=== PATIENT | male | born 1990 | race Caucasian/White ===

== ENCOUNTER 2017-06-15 09:00 | Emergency (ER) | payer MEDICAID, SELFPAY ==
[2017-06-15 09:01] VITALS: BP 155/73; PULSE 125; RESP 16; TEMP 37.1; O2SAT 97; BMI 30.4
--- NOTE | 2017-06-15 09:18 | ED.VISSUMM ---
- ER Visit Summary Date of Service: 06/15/17 Chief Complaint: Nausea and vomiting History of Present Illness: The patient is a 27 M who states that 2 evenings ago he ate some pizza. He states that shortly thereafter he developed abdominal cramping vomiting. Several hours later he had diarrhea. That persisted throughout yesterday and the night. He last had diarrhea at 0300 hrs. He states he vomited just prior to arrival in the department. Patient denies any fevers. He denies any blood in the stool. States he otherwise is very healthy. He is currently living at a clean house in [place]. He states he does not do any drugs. (The patient smells extremely heavy of marijuana almost as if he was exposed to it just prior to walking into the emergency department) Physical Examination: Afebrile slightly tachycardic. Gen: Well-nourished well-developed the patient is intermittently retching. Head: Normocephalic atraumatic Eyes: Pupils are 5 mm bilaterally and sluggish. ENT: TMs clear no rhinorrhea moist mucous membranes patient appears very well-hydrated. Neck: Supple no lymphadenopathy no JVD nontender CVS: Tachycardic rate rhythm no murmurs normal S1-S2 excellent capillary refill. Respiratory: No distress clear to auscultation bilaterally chest nontender Abdomen: Soft nontender nondistended normal bowel sounds no masses Back: Nontender Extremity: Nontender no edema Skin: Normal color no rash Neuro: alert orientated ?3 CN II-XII intact normal strength sensation reflexes gait cerebellar Psych: Normal affect normal mood Emergency Department Course and Treatment: Patient was given 8 mg Zofran ODT here. I will write him prescription for Zofran. He is to use Imodium. He is to orally hydrate. Patient is drinking water here in the department and brought his own Sprite which is 3/4 gone upon arrival. Follow-up with primary care if not improving return if worsening. Impression: 1. Gastroenteritis This note was generated with [employer] dictation software. 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 Orally hydrate with water and Pedialyte.
[2017-06-15] MEDS: Ondansetron ODT 4 MG Tablet 8 MG PO (09:21)
--- NOTE | 2017-06-15 09:28 | ED.DCSUM_ITS ---
- ER Visit Summary Date of Service: 06/15/17 Chief Complaint: Nausea and vomiting History of Present Illness: The patient is a 27 M who states that 2 evenings ago he ate some pizza. He states that shortly thereafter he developed abdominal cramping vomiting. Several hours later he had diarrhea. That persisted throughout yesterday and the night. He last had diarrhea at 0300 hrs. He states he vomited just prior to arrival in the department. Patient denies any fevers. He denies any blood in the stool. States he otherwise is very healthy. He is currently living at a clean house in [place]. He states he does not do any drugs. (The patient smells extremely heavy of marijuana almost as if he was exposed to it just prior to walking into the emergency department) Physical Examination: Afebrile slightly tachycardic. Gen: Well-nourished well-developed the patient is intermittently retching. Head: Normocephalic atraumatic Eyes: Pupils are 5 mm bilaterally and sluggish. ENT: TMs clear no rhinorrhea moist mucous membranes patient appears very well- hydrated. Neck: Supple no lymphadenopathy no JVD nontender CVS: Tachycardic rate rhythm no murmurs normal S1-S2 excellent capillary refill. Respiratory: No distress clear to auscultation bilaterally chest nontender Abdomen: Soft nontender nondistended normal bowel sounds no masses Back: Nontender Extremity: Nontender no edema Skin: Normal color no rash Neuro: alert orientated ?3 CN II-XII intact normal strength sensation reflexes gait cerebellar Psych: Normal affect normal mood Emergency Department Course and Treatment: Patient was given 8 mg Zofran ODT here. I will write him prescription for Zofran. He is to use Imodium. He is to orally hydrate. Patient is drinking water here in the department and brought his own Sprite which is 3/4 gone upon arrival. Follow-up with primary care if not improving return if worsening. Impression: 1. Gastroenteritis This note was generated with [employer] dictation software. It may contain incorrect words, spelling, and punctuation that were not noted in review of the chart prior to signing ED Disposition - Plan for ED Patient: Disposition: Home or Assisted Living Chief Complaint: Nausea/Vomiting Instructions: ED Vomiting Diarrhea Nonspecific Ad Prescriptions: Ondansetron [Zofran Odt] 4 - 8 mg PO Q8H PRN PRN #20 tab PRN Reason: Nausea Referrals: Osman Cortes III, MD [Primary Care Provider] - 3-5 Days if not improving Additional Instructions: While you are at the pharmacy I would recommend you knot picker cloth some Imodium for the diarrhea. Orally hydrate with water and Pedialyte.
== END 2017-06-15 09:31 | disposition home or self-care (01) ==
PROVIDERS: Emergency Provider Emergency Medicine; Family Provider Family Medicine; PCP Family Medicine
DX: K52.9 Noninfective gastroenteritis and colitis, unspecified (principal); Z72.0 Tobacco use
CPT/HCPCS: 99283

== ENCOUNTER 2017-07-07 15:46 | Emergency (ER) | payer MEDICAID, SELFPAY ==
[2017-07-07 15:47] VITALS: BP 132/75; PULSE 94; RESP 16; TEMP 36.4; O2SAT 99; BMI 29.3
[2017-07-07] MEDS: HYDROcodone Bitartrate/Apap 5/325 Tablet PO (16:16)
--- NOTE | 2017-07-07 16:31 | ED.DCSUM_ITS ---
- ER Visit Summary Date of Service: 07/07/17 Chief Complaint: Left arm lump History of Present Illness: The patient is a 27 M who presents with a painful swollen red lump in his left armpit. He initially noted it about 5 days ago. He was started on Keflex and has been doing warm compresses. It has continued to worsen since that time. He returned to the urgent care. He states he was told that it was too close to the lymph nodes for them to take care of it there so he was sent here to the emergency department. He has no systemic symptoms such as fevers vomiting or diarrhea. Physical Examination: Afebrile vitals are normal Moist mucous membranes Heart regular rate and rhythm Lungs are clear There is a left axillary abscess which is tender to the touch and fluctuant measuring about 2 x 2 cm no spontaneous drainage at this time Test Results: Not indicated Emergency Department Course and Treatment: Patient was anesthetized with 3 cc of 1% local lidocaine. Good anesthesia was achieved. A cruciate incision was made with a #11 blade with a large amount of purulent drainage. Quarter inch packing was placed. Patient was advised to move this himself in 2-3 days or to return to the emergency department to have the packing removed. He was advised on warm soaks. We will add on Bactrim for MRSA coverage. He understands to return for new or worsening symptoms. He was given a [place] here for pain and advised to use anti-inflammatories at home. All questions answered bedside and patient discharged. Treatment Plan: [] Disposition: Discharge Impression: Left axillary abscess This note was generated with [employer] dictation software. It may contain incorrect words, spelling, and punctuation that were not noted in review of the chart prior to signing ED Disposition - Plan for ED Patient: Chief Complaint: Abscess Referrals: Osman Cortes III, MD [Primary Care Provider] -
--- NOTE | 2017-07-07 16:31 | ED.DEP ---
ED Disposition - Plan for ED Patient: Chief Complaint: Abscess Instructions: ED Abscess IandD Prescriptions: Smz/Tmp Ds [Bactrim Ds] 1 tab PO BID #14 tab Referrals: Osman Cortes III, MD [Primary Care Provider] -
== END 2017-07-07 16:52 | disposition home or self-care (01) ==
LOC: ED 16:13
PROVIDERS: Emergency Provider Emergency Medicine; Family Provider Family Medicine; PCP Family Medicine
DX: L02.412 Cutaneous abscess of left axilla (principal); Z72.0 Tobacco use
CPT/HCPCS: 10060; 99284

== ENCOUNTER 2017-07-09 14:10 | Emergency (ER) | payer MEDICAID, SELFPAY ==
[2017-07-09 14:10] VITALS: BP 132/78; PULSE 72; RESP 16; TEMP 36.8; O2SAT 99; BMI 29.1
--- NOTE | 2017-07-09 14:54 | ED.VISSUMM ---
- ER Visit Summary Date of Service: 07/09/17 Chief Complaint: Wound check History of Present Illness: The patient is a 27 M presents for a wound check. The patient had incision and drainage of a left axillary abscess 2 days ago. He states he was told to come back today for packing removal. He denies any fevers or chills. The drainage has improved. He said no other systemic symptoms. He has been taking Bactrim with some improvement. Physical Examination: Exam is relatively unremarkable. The patient has cruciate incision in the left axilla. There is no erythema. The wound is open, but there is no drainage. There is no cellulitis. The packing has already been dislodged. There was minimal tenderness to palpation. Test Results: [] Emergency Department Course and Treatment: The abscess looks like it is well healing. The cruciate incision is still open. There is no drainage or cellulitis. The patient will continue his antibiotic. He will be discharged home. Treatment Plan: [] Disposition: Charge Impression:. Wound check This note was generated with [employer] dictation software. It may contain incorrect words, spelling, and punctuation that were not noted in review of the chart prior to signing ED Disposition - Plan for ED Patient: Chief Complaint: Wound Check Instructions: ED Wound Check Post Op No Infec Referrals: Osman Cortes III, MD [Primary Care Provider] -
[2017-07-09 15:07] VITALS: PULSE 81; RESP 14; O2SAT 99
== END 2017-07-09 15:05 | disposition home or self-care (01) ==
LOC: ED 14:57
PROVIDERS: Emergency Provider Emergency Medicine; Family Provider Family Medicine; PCP Family Medicine
DX: Z48.01 Encounter for change or removal of surgical wound dressing (principal); Z72.0 Tobacco use
CPT/HCPCS: 99282

== ENCOUNTER 2017-08-08 18:38 | Emergency (ER) | payer MEDICAID, SELFPAY ==
[2017-08-08 18:38] VITALS: BP 135/72; PULSE 98; RESP 18; TEMP 36.7; O2SAT 98; BMI 28.5
--- NOTE | 2017-08-08 19:26 | ED.VISSUMM ---
- ER Visit Summary Date of Service: 08/08/17 Chief Complaint: Left nose pain, left ear pain and facial swelling History of Present Illness: The patient is a 27 M who presents because of pain and swelling lateral aspect of the left naris. He also is concerned because of left facial swelling and left ear pain. He denies any dental pain. He denies nasal drainage, rhinorrhea, postnasal drainage or congestion. He denies sore throat. He denies fever chills. Denies headache, photophobia, ocular pain or neck pain or stiffness. He had a subcutaneous abscess left upper extremity 3 months ago and was treated with cephalexin and Bactrim after I&D. He has no history rheumatic fever, murmur, SPE, IV drug use to be immune to rest. Physical Examination: Patient has a subcutaneous abscess lateral aspect left naris. There is facial swelling with mild erythema left side. There is evidence of serous otitis on the left. There is minimal congestion/drainage in the nares. Mucosa appears normal. Posterior pharynx unremarkable with midline uvula. There is no erythema, or exudate. Trachea is midline. No cervical lymphadenopathy. Neck is supple with no meningeal findings. Insert cardiopulmonary exam Test Results: None Emergency Department Course and Treatment: The nose was anesthetized by infraorbital nerve block. Intraoral approach was undertaken. There was supplementation required. Once the area was anesthetized incision was made with murky thick brown purulent material noted. Blunt dissection was undertaken. The area was packed. Because of recent abscess he and concern for facial cellulitis he was placed on cephalexin and Bactrim. Treatment Plan: Follow-up with Dr. Taqueria Cortes in 2 days for wound check and antibiotics for strep and staph coverage Disposition: Discharged home in stable and improved condition Impression: 1. Subcutaneous abscess naris left side status post I&D 2. Serous otitis left ear This note was generated with [employer] dictation software. It may contain incorrect words, spelling, and punctuation that were not noted in review of the chart prior to signing ED Disposition - Plan for ED Patient: Disposition: Home or Assisted Living Chief Complaint: Cold Sx Instructions: ED Abscess IandD, ED Cellulitis Facial, ED Otitis Media Serous Adult Prescriptions: Hydrocodone Bitart/Apap 5-325 [[place] 5MG-325MG] 1 tablet PO Q4H PRN PRN 2 Days #10 tablet PRN Reason: Pain Smz/Tmp Ds [Bactrim Ds] 1 tab PO BID #14 tab Cephalexin 500 mg PO 4X/DAY #28 cap Referrals: Osman Cortes III, MD [Primary Care Provider] - 2 Days for wound check Additional Instructions: Your prescription was electronically transmitted to [facility] pharmacy your designated pharmacy.
--- NOTE | 2017-08-08 19:33 | ED.DCSUM_ITS ---
- ER Visit Summary Date of Service: 08/08/17 Chief Complaint: Left nose pain, left ear pain and facial swelling History of Present Illness: The patient is a 27 M who presents because of pain and swelling lateral aspect of the left naris. He also is concerned because of left facial swelling and left ear pain. He denies any dental pain. He denies nasal drainage, rhinorrhea, postnasal drainage or congestion. He denies sore throat. He denies fever chills. Denies headache, photophobia, ocular pain or neck pain or stiffness. He had a subcutaneous abscess left upper extremity 3 months ago and was treated with cephalexin and Bactrim after I&D. He has no history rheumatic fever, murmur, SPE, IV drug use to be immune to rest. Physical Examination: Patient has a subcutaneous abscess lateral aspect left naris. There is facial swelling with mild erythema left side. There is evidence of serous otitis on the left. There is minimal congestion/drainage in the nares. Mucosa appears normal. Posterior pharynx unremarkable with midline uvula. There is no erythema, or exudate. Trachea is midline. No cervical lymphadenopathy. Neck is supple with no meningeal findings. Insert cardiopulmonary exam Test Results: None Emergency Department Course and Treatment: The nose was anesthetized by infraorbital nerve block. Intraoral approach was undertaken. There was supplementation required. Once the area was anesthetized incision was made with murky thick brown purulent material noted. Blunt dissection was undertaken. The area was packed. Because of recent abscess he and concern for facial cellulitis he was placed on cephalexin and Bactrim. Treatment Plan: Follow-up with Dr. Taqueria Cortes in 2 days for wound check and antibiotics for strep and staph coverage Disposition: Discharged home in stable and improved condition Impression: 1. Subcutaneous abscess naris left side status post I&D 2. Serous otitis left ear This note was generated with [employer] dictation software. It may contain incorrect words, spelling, and punctuation that were not noted in review of the chart prior to signing ED Disposition - Plan for ED Patient: Disposition: Home or Assisted Living Chief Complaint: Cold Sx Instructions: ED Abscess IandD, ED Cellulitis Facial, ED Otitis Media Serous Adult Prescriptions: Hydrocodone Bitart/Apap 5-325 [[place] 5MG-325MG] 1 tablet PO Q4H PRN PRN 2 Days # 10 tablet PRN Reason: Pain Smz/Tmp Ds [Bactrim Ds] 1 tab PO BID #14 tab Cephalexin 500 mg PO 4X/DAY #28 cap Referrals: Osman Cortes III, MD [Primary Care Provider] - 2 Days for wound check Additional Instructions: Your prescription was electronically transmitted to [facility] pharmacy your designated pharmacy.
[2017-08-08] MEDS: HYDROcodone Bitartrate/Apap 5/325 Tablet PO (19:42)
[2017-08-08] MEDS: Smz/Tmp Ds Tablet 1 TABLET PO (19:42)
[2017-08-08] MEDS: Cephalexin 500 MG Capsule PO (19:55)
== END 2017-08-08 20:00 | disposition home or self-care (01) ==
PROVIDERS: Emergency Provider Emergency Medicine; Family Provider Family Medicine; PCP Family Medicine
DX: J34.0 Abscess, furuncle and carbuncle of nose (principal); H65.92 Unspecified nonsuppurative otitis media, left ear; Z72.0 Tobacco use
CPT/HCPCS: 10061; 99284

== ENCOUNTER 2017-10-28 16:09 | Emergency (ER) | payer MEDICAID, SELFPAY ==
[2017-10-28 16:10] VITALS: BP 159/95; PULSE 119; RESP 16; TEMP 36.4; O2SAT 97; BMI 28.7
[2017-10-28 16:58] LABS: Absolute Neutrophil Count 4.7 X10^3/uL (2.0-7.7); Basophil# 0.03 X10^3/uL; Basophil% 0.4 % (0-1); Eosinophil# 0.08 X10^3/uL; Hematocrit 39.4 % (40-54); Hemoglobin 13.1 g/dl (13.0-16.5); Lymphocyte % 30.3 % (19-41); Mean Corp Hgb Conc 33.2 g/gl (32-36); Mean Corpuscular Hgb 29.9 pg (27.0-32.0); Mean Platelet Vol. 10.1 fl (6.2-12.0); Monocyte# 0.77 X10^3/uL; Monocyte% 9.7 % (0-10); Neutrophil # 4.65 X10^3/uL (2.7-7.7); Neutrophil % 58.6 % (47-70); Platelet Count 159 K/mm3 (150-450); RBC Distribution Width CV 13.4 % (11.6-14.6); Red Blood Count 4.38 M/mm3 (4.6-6.2); White Blood Count 7.9 K/mm3 (4.4-11.0)
[2017-10-28 17:03] LABS: POSITIVE COUNT NO; POSITIVE DIFFERENTIAL NO; POSITIVE MORPHOLOGY NO
[2017-10-28 17:10] VITALS: RESP 14
[2017-10-28 17:19] LABS: Anion Gap 8 (5-15); BUN 8 mg/dL (7-18); BUN/Creat Ratio 11.4 RATIO (10-20); Calcium,Total 8.4 mg/dL (8.5-10.1); Chloride 107 mmol/L (98-107); EST Glomerular Filtration Rate 142 mL/min (>60); Est Glom Filt Rate - Afr Amer 172 mL/min (>60); Estimated Creatinine Clearance 141.78 ml/min; Glucose 100 mg/dL (74-106); Potassium 3.5 mmol/L (3.5-5.1); Sodium Level 142 mmol/L (136-145)
[2017-10-28 17:53] LABS: Amphetamine Urine VISTA NEGATIVE (<1000 ng/mL); Barbiturate Urine VISTA NEGATIVE (< 200 ng/mL); Benzodiazepine Urine VISTA NEGATIVE (< 200 ng/mL); Cocaine Urine VISTA NEGATIVE (< 300 ng/mL); Ecstacy Urine VISTA NEGATIVE (< 500 ng/mL); Methadone Urine VISTA NEGATIVE (< 300 ng/mL); PCP Urine VISTA NEGATIVE (< 25 ng/mL); THC Urine VISTA POSITIVE (< 50 ng/mL); Vista UDS pH Range 6
--- NOTE | 2017-10-28 17:55 | ED.RN ---
CALLED [facility] TO HAVE THEM COME SEE PATIENT. DISTRICT GAUGER STATED THEY WILL LET LUIS ENRIQUE ROSE MARY KNOW.
[2017-10-28 18:00] VITALS: RESP 14
--- NOTE | 2017-10-28 18:09 | ED.DCSUM_ITS ---
- ER Visit Summary Date of Service: 10/28/17 Chief Complaint: [Depression and suicidal ideation] History of Present Illness: The patient is a 27 M [presents to the emergency department complaint of feeling depressed and suicidal. Patient states he has felt this twice especially over the last 2 days. Patient states that he is losing his house, his job, and his girlfriend. 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 Patient's plan is to overdose on heroin. He denies any visual or auditory hallucinations. Patient does have a history of depression and is currently on trazodone, Prozac, and Vistaril. Patient has had admissions for suicidal ideation to psychiatric facilities in the past. He denies any physical complaints.] Physical Examination: [HEENT-PERRLA, EOMI. Cranial nerves II through XII grossly intact. TMs clear. Mucous membranes moist. No adenopathy. Cardiovascular-regular rate and rhythm without murmur or ectopy Lungs-clear to auscultation, chest wall stable without crepitus or subcu emphysema Abdomen-normoactive bowel sounds, soft, nontender, no rebound or rigidity, no peritoneal signs. Extremities-intact ?4, normal range of motion, normal pulses, atraumatic] Test Results: [CBC with differential was normal. Chemistries were normal. Toxicology screen was positive for opiates and marijuana. Alcohol was negative. ] Emergency Department Course and Treatment: [Patient will be evaluated by crisis. ] Treatment Plan: [Plan will be to likely have patient admitted to psychiatric facility as he continues to feel suicidal.] Disposition: [Pending evaluation by crisis Impression: [Depression Suicidal ideation] This note was generated with [employer]! dictation software. It may contain incorrect words, spelling, and punctuation that were not noted in review of the chart prior to signing ED Disposition - Plan for ED Patient: Chief Complaint: Suicidal Referrals: Care Physician,No Primary [Primary Care Provider] -
--- NOTE | 2017-10-28 18:47 | ED.RN ---
LUIS ENRIQUE FROM [facility] CALLED. HE STATED HE WILL BE OVER SOON.
--- NOTE | 2017-10-28 19:42 | ED.RN ---
LUIS ENRIQUE FROM [facility] IS HERE TO SEE PT.
--- NOTE | 2017-10-28 19:43 | EKG12_ITS ---
Test Reason : [facility] [place] Pressure : / mmHG Vent. Rate : 088 BPM Atrial Rate : 088 BPM P-R Int : 156 ms QRS Dur : 092 ms QT Int : 362 ms P-R-T Axes : 068 080 046 degrees QTc Int : 438 ms Normal sinus rhythm Normal ECG Confirmed by SYDNEE AGUILAR, LUCIO ([id number]), web editor REBEKA CHAPARRO ([id number]) on 10/31/2017 2:31:09 PM Referred By: BILL Confirmed By:LUCIO RANDHAWA MD
--- NOTE | 2017-10-28 20:03 | ED.VISSUMM ---
- ER Visit Summary Date of Service: 10/28/17 Chief Complaint: [Depression] History of Present Illness: The patient is a 27 M [presented with complaint of feeling suicidal and feeling depressed. Patient was evaluated by crisis and at this time stating that he is not suicidal. Patient states that he is going to stay at the [facility] and does not feel like he needs to be hospitalized. Crisis is very familiar with this patient as he has had multiple recent hospitalizations for similar complaints. Patient tells me that he has been without his medications for the last 2 days however he does have prescriptions for his medications at his mother's house. Patient is adamant that he has no plan on harming himself at this time and can contract for safety. Patient has an intake appointment with crisis tomorrow.] Physical Examination: [] Test Results: [] Emergency Department Course and Treatment: [] Treatment Plan: [] Disposition: [Discharged home in stable condition. Patient to follow-up with crisis. Crisis will work on making sure patient has access to his medications.] Impression: [Depression] This note was generated with [employer] dictation software. It may contain incorrect words, spelling, and punctuation that were not noted in review of the chart prior to signing ED Disposition - Plan for ED Patient: Chief Complaint: Suicidal Referrals: Care Physician,No Primary [Primary Care Provider] -
--- NOTE | 2017-10-28 20:05 | ED.DEP ---
ED Disposition - Plan for ED Patient: Chief Complaint: Suicidal Instructions: ED Contract, No Harm, ED Depression Referrals: Care Physician,No Primary [Primary Care Provider] - Additional Instructions: follow up with crisis
[2017-10-28] MEDS: hydrOXYzine PAM 25 MG Capsule 50 MG PO (20:20)
[2017-10-28] MEDS: FLUoxetine 20 MG Capsule 40 MG PO (20:20)
[2017-10-28 20:28] LABS: AST(SGOT) 21 U/L (15-37); Alanine Aminotransfer ALT/SGPT 49 U/L (16-61); Albumin, Serum 3.6 g/dL (3.2-5.0); Alkaline Phosphatase 50 U/L (45-117); Bilirubin, Direct 0.06 mg/dL (0.00-0.30); Globulin 3.7 g/dL (2.2-4.2); Protein, Total 7.3 g/dL (6.4-8.2)
[2017-10-28 20:37] VITALS: BP 128/74; PULSE 86; RESP 18; O2SAT 97
--- NOTE | 2017-10-28 20:39 | ED.RN ---
THIS NURSE REVIEWED D/C INSTRUCTIONS WITH PT. PT VERBALIZED UNDERSTANDING OF INSTRUCTIONS. PT DENIES FURTHER NEEDS OR QUESTIONS AT THIS TIME. PT AMBULATES FROM ROOM ON OWN WITHOUT ASSISTANCE FROM STAFF
== END 2017-10-28 20:39 | disposition home or self-care (01) ==
PROVIDERS: Emergency Provider Emergency Medicine
DX: F32.9 Major depressive disorder, single episode, unspecified (principal); R45.851 Suicidal ideations; F11.90 Opioid use, unspecified, uncomplicated; Z72.0 Tobacco use
CPT/HCPCS: 80048; 80076; 80307; 80320; 85025; 93005; 99284; G0480

== ENCOUNTER 2017-10-30 01:49 | Emergency (ER) | payer MEDICAID, SELFPAY ==
[2017-10-30] VITALS (10 sets, daily range): BP systolic 113–137; BP diastolic 63–83; PULSE 68–95; RESP 14–20; TEMP 37; O2SAT 95–100; BMI 28.9
--- NOTE | 2017-10-30 01:59 | ED.RN ---
NURSING STAFF AT THIS TIME TIME STARTING ONE ON ONE OBSERVATION OF PATIENT DUE TO SUICIDAL THOUGHTS
--- NOTE | 2017-10-30 02:04 | ED.DCSUM_ITS ---
- ER Visit Summary Date of Service: 10/30/17 Chief Complaint: Suicidal ideation History of Present Illness: The patient is a 27 M he was seen in the ER on the for suicidal ideation. He states he restarted his medication but is not feeling any better. He states his plan is to hang himself anyone as far as to get a rope. He states his last psych admission was approximately June of this year. Physical Examination: Vital signs unremarkable. Patient sitting upright in bed no acute distress. Head neck examination is unremarkable. Heart is regular rate and rhythm. Lung sounds are clear. Abdomen is soft nontender. Skin examination reveals a few superficial abrasions on his legs. Psychiatric evaluation reveals poor eye contact and depressed affect. He has limited answers to questions. Test Results: CBC and chemistry studies are unremarkable. EtOH is negative. Tox screen is positive for cannabinoids. LFTs are normal. EKG is unremarkable. Emergency Department Course and Treatment: Crisis has been called to evaluate the patient. They advised me the patient was just discharged from a mental health facility a few days ago. At this time they are looking at [facility]. Treatment Plan: [] Disposition: Anticipated transfer Impression: Suicidal ideation This note was generated with [employer] dictation software. It may contain incorrect words, spelling, and punctuation that were not noted in review of the chart prior to signing ED Disposition - Plan for ED Patient: Chief Complaint: Suicidal Referrals: Care Physician,No Primary [Primary Care Provider] -
[2017-10-30 02:27] LABS: Absolute Lymphocyte Count 3.53 X10^3/ul (0.83-4.51); Absolute Neutrophil Count 4.3 X10^3/uL (2.0-7.7); Anion Gap 7 (5-15); BUN 14 mg/dL (7-18); BUN/Creat Ratio 15.6 RATIO (10-20); Basophil# 0.04 X10^3/uL; Basophil% 0.5 % (0-1); Calcium,Total 8.6 mg/dL (8.5-10.1); Chloride 106 mmol/L (98-107); EST Glomerular Filtration Rate 107 mL/min (>60); Eosinophil# 0.11 X10^3/uL; Eosinophils% 1.3 % (0-5); Est Glom Filt Rate - Afr Amer 129 mL/min (>60); Estimated Creatinine Clearance 110.27 ml/min; Glucose 98 mg/dL (74-106); Hematocrit 40.7 % (40-54); Hemoglobin 13.9 g/dl (13.0-16.5); Lymphocyte # 3.53 X10^3/ul (4.0); Lymphocyte % 40.4 % (19-41); Mean Corp Hgb Conc 34.2 g/gl (32-36); Mean Corpuscular Hgb 30.8 pg (27.0-32.0); Mean Corpuscular Volume 90.2 fL (80-94); Mean Platelet Vol. 10.5 fl (6.2-12.0); Monocyte# 0.76 X10^3/uL; Monocyte% 8.7 % (0-10); Neutrophil # 4.28 X10^3/uL (2.7-7.7); Neutrophil % 48.9 % (47-70); Platelet Count 192 K/mm3 (150-450); Potassium 3.9 mmol/L (3.5-5.1); RBC Distribution Width CV 13.5 % (11.6-14.6); RBC Distribution Width SD 44.4 fl (35.1-43.9); Red Blood Count 4.51 M/mm3 (4.6-6.2); Sodium Level 139 mmol/L (136-145); White Blood Count 8.7 K/mm3 (4.4-11.0)
[2017-10-30 02:30] LABS: Differential Indicated SCAN CRITERIA MET; POSITIVE COUNT NO; POSITIVE DIFFERENTIAL NO; POSITIVE MORPHOLOGY YES
[2017-10-30 02:49] LABS: Anisocytosis RARE; Macrocytosis RARE; Platelet Estimate ADEQUATE (ADEQ)
--- NOTE | 2017-10-30 02:50 | ED.RN ---
CALLED [facility] TO SEE THIS PT, LUIS ENRIQUE BAZZI IS CLASSIFIER OPERATOR
[2017-10-30 03:01] LABS: Amphetamine Urine VISTA NEGATIVE (<1000 ng/mL); Barbiturate Urine VISTA NEGATIVE (< 200 ng/mL); Benzodiazepine Urine VISTA NEGATIVE (< 200 ng/mL); Cocaine Urine VISTA NEGATIVE (< 300 ng/mL); Ecstacy Urine VISTA NEGATIVE (< 500 ng/mL); Methadone Urine VISTA NEGATIVE (< 300 ng/mL); PCP Urine VISTA NEGATIVE (< 25 ng/mL); THC Urine VISTA POSITIVE (< 50 ng/mL); Vista UDS pH Range 6
--- NOTE | 2017-10-30 03:17 | ED.RN ---
[facility] CALLED IN, LUIS ENRIQUE IS AWARE THIS PT NEEDS TO BE SEEN
--- NOTE | 2017-10-30 04:07 | ED.RN ---
[facility] ON SITE
--- NOTE | 2017-10-30 04:09 | EKG12_ITS ---
Test Reason : Blood Pressure : / mmHG Vent. Rate : 071 BPM Atrial Rate : 071 BPM P-R Int : 162 ms QRS Dur : 092 ms QT Int : 392 ms P-R-T Axes : 053 074 036 degrees QTc Int : 425 ms Normal sinus rhythm Normal ECG Confirmed by CHILO MANLEY MD ([id number]), online editor REBEKA CHAPARRO ([id number]) on 11/01/2017 1:43:03 PM Referred By: AIDEE Confirmed By:CHILO MANLEY MD
[2017-10-30 04:35] LABS: AST(SGOT) 26 U/L (15-37); Alanine Aminotransfer ALT/SGPT 50 U/L (16-61); Albumin, Serum 3.8 g/dL (3.2-5.0); Alkaline Phosphatase 54 U/L (45-117); Bilirubin, Direct 0.07 mg/dL (0.00-0.30); Globulin 3.7 g/dL (2.2-4.2); Protein, Total 7.5 g/dL (6.4-8.2)
--- NOTE | 2017-10-30 05:24 | ED.RN ---
[facility] IN TO SEE PATIENT. PATIENT AT THIS TIME PENDING PLACEMENT AT [facility]
--- NOTE | 2017-10-30 09:27 | NURSING ---
CALLED [facility]. EVERYONE IS BUSY. SOMEONE WILL CALL US BACK.
--- NOTE | 2017-10-30 10:53 | NURSING ---
CHART FAXED TO KRIST[facility] DUDLEY
--- NOTE | 2017-10-30 11:33 | ED.RN ---
PT RAN OFF UNIT AFTER STATING THAT HE WAS GOING TO THE BATHROOM. PT WAS STILL UNDER ONE ON ONE OBSERVATION. PT RAN OFF DEPARMENT SECURITY AND POLICE NOTIFIED.
[2017-10-30 13:34] LABS: Pathologist Review Reviewed
--- NOTE | 2017-10-30 16:49 | NURSING ---
ACCEPTED AT [facility]
--- NOTE | 2017-10-30 17:22 | NURSING ---
CALLED [facility] CALLED 170
== END 2017-10-30 19:03 ==
PROVIDERS: Emergency Provider Emergency Medicine
DX: R45.851 Suicidal ideations (principal); Z72.0 Tobacco use
CPT/HCPCS: 36415; 80048; 80076; 80307; 80320; 85025; 93005; 99284; G0480

== ENCOUNTER 2017-11-20 21:05 | Emergency (ER) | payer MEDICAID, SELFPAY ==
[2017-11-20 21:07] VITALS: BP 126/80; PULSE 76; RESP 18; TEMP 36.6; O2SAT 98; BMI 27.4
--- NOTE | 2017-11-20 22:55 | ED.DCSUM_ITS ---
- ER Visit Summary Date of Service: 11/20/17 Chief Complaint: Depression, suicidal ideation History of Present Illness: The patient is a 27 M presents for evaluation of increasing depression and suicidal ideation starting today. [facility] found out that he is denied help him pathway for heroin and THC dependence. Staying at [facility] for the past 12 days with 2 days left. There is no family support. States because of this increasing depression. He has plans of hanging. States a month ago sent to [place] secondary to suicidal ideations and overdose. He was seen at [facility] at that time. 1 week stay. States there is no adjustment in medications. Admits to tobacco. Last heroin use was a week ago. He states he normally snorts. Has injected in the past. THC use. States methamphetamine use 2 weeks ago. States last detox was in 2009. Complains of mild headache, request ibuprofen. Physical Examination: General: Alert and oriented ?3, no acute distress HEENT: Normocephalic, atraumatic. Moist mucosa membranes Neck: supple, nontender. No meningismus Cardiovascular: Regular rate and rhythm, no murmurs Respiratory: Normal breath sounds, symmetric, no distress Abdomen: Soft, nontender, nondistended Extremities: Nontender, no edema, pulses intact ?4 Neuro: no focal neurological deficits. Psych: Suicidal ideation with plan. Flat affect, cooperative. Test Results: Alcohol negative tox screen positive for THC. Labs were normal. Emergency Department Course and Treatment: Patient cooperative, flat affect, admits to suicidal ideations. Patient medical screening exam positive for THC. He admits to this. He is medically cleared. He was evaluated by crisis for planned placement. Pending acceptance. Treatment Plan: [] Disposition: Pending Impression: 1. Suicidal ideation 2. Depression 3. History of heroin abuse This note was generated with Coveoation software. It may contain incorrect words, spelling, and punctuation that were not noted in review of the chart prior to signing ED Disposition - Plan for ED Patient: Disposition: Psychiatric Hospital or Unit Chief Complaint: Mental Health Diagnosis: Suicidal ideation, Depression, History of heroin abuse Referrals: Care Physician,No Primary [Primary Care Provider] -
[2017-11-20 23:29] LABS: Absolute Lymphocyte Count 3.27 X10^3/ul (0.83-4.51); Absolute Neutrophil Count 5.7 X10^3/uL (2.0-7.7); Basophil# 0.02 X10^3/uL; Basophil% 0.2 % (0-1); Eosinophil# 0.12 X10^3/uL; Eosinophils% 1.2 % (0-5); Hematocrit 41.1 % (40-54); Hemoglobin 14.3 g/dl (13.0-16.5); Lymphocyte # 3.27 X10^3/ul (4.0); Lymphocyte % 32.6 % (19-41); Mean Corp Hgb Conc 34.8 g/gl (32-36); Mean Corpuscular Hgb 31.4 pg (27.0-32.0); Mean Corpuscular Volume 90.3 fL (80-94); Mean Platelet Vol. 10.4 fl (6.2-12.0); Monocyte# 0.92 X10^3/uL; Monocyte% 9.2 % (0-10); Neutrophil # 5.67 X10^3/uL (2.7-7.7); Neutrophil % 56.6 % (47-70); Platelet Count 177 K/mm3 (150-450); RBC Distribution Width CV 13.6 % (11.6-14.6); RBC Distribution Width SD 44.4 fl (35.1-43.9); Red Blood Count 4.55 M/mm3 (4.6-6.2)
[2017-11-20 23:31] LABS: Anion Gap 7 (5-15); BUN 12 mg/dL (7-18); BUN/Creat Ratio 17.3 RATIO (10-20); Calcium,Total 8.7 mg/dL (8.5-10.1); Chloride 103 mmol/L (98-107); Creatinine, Serum 0.69 mg/dL (0.70-1.30); EST Glomerular Filtration Rate 144 mL/min (>60); Est Glom Filt Rate - Afr Amer 174 mL/min (>60); Estimated Creatinine Clearance 143.83 ml/min; Glucose 94 mg/dL (74-106); Potassium 3.7 mmol/L (3.5-5.1); Sodium Level 137 mmol/L (136-145)
[2017-11-20 23:33] LABS: POSITIVE COUNT NO; POSITIVE DIFFERENTIAL NO; POSITIVE MORPHOLOGY NO
[2017-11-21] VITALS (7 sets, daily range): BP systolic 98–126; BP diastolic 53–76; PULSE 81–85; RESP 14–18; O2SAT 98–99
[2017-11-21 00:02] LABS: Amphetamine Urine VISTA NEGATIVE (<1000 ng/mL); Barbiturate Urine VISTA NEGATIVE (< 200 ng/mL); Benzodiazepine Urine VISTA NEGATIVE (< 200 ng/mL); Cocaine Urine VISTA NEGATIVE (< 300 ng/mL); Ecstacy Urine VISTA NEGATIVE (< 500 ng/mL); Methadone Urine VISTA NEGATIVE (< 300 ng/mL); PCP Urine VISTA NEGATIVE (< 25 ng/mL); THC Urine VISTA POSITIVE (< 50 ng/mL); Vista UDS pH Range 7
--- NOTE | 2017-11-21 05:03 | EKG12_ITS ---
Test Reason : [facility] [place] Blood Pressure : / mmHG Vent. Rate : 063 BPM Atrial Rate : 063 BPM P-R Int : 158 ms QRS Dur : 094 ms QT Int : 402 ms P-R-T Axes : 052 076 041 degrees QTc Int : 411 ms Normal sinus rhythm Normal ECG Confirmed by SINDHU AGUILAR, CHILO ([id number]), state editor REBEKA CHAPARRO ([id number]) on 11/26/2017 3:52:29 PM Referred By: KAMERON Confirmed By:CHILO MANLEY MD
[2017-11-21 05:31] LABS: Bacteria 0 SEEN /hpf (None Seen); Mucous, Urine 0 SEEN /hpf (<or=2+); Red Blood Cells-Urine 0 SEEN /hpf (0-5); Squamous Epithelial Cells - UA 0 SEEN /hpf (0-5)
[2017-11-21 05:33] LABS: AST(SGOT) 22 U/L (15-37); Alanine Aminotransfer ALT/SGPT 40 U/L (16-61); Albumin, Serum 3.8 g/dL (3.2-5.0); Alkaline Phosphatase 55 U/L (45-117); Globulin 3.6 g/dL (2.2-4.2); Protein, Total 7.4 g/dL (6.4-8.2)
[2017-11-21 06:28] LABS: Color, Urine Yellow (Yellow); Glucose, Dipstick NEGATIVE (Normal); Ketone-Dipstick Negative (Negative); Leukocyte Esterase-Dipstick 25 /ul (Negative); Nitrite-Dipstick Negative (Negative); Occult Blood-Urine Negative /ul (Negative); Protein-Dipstick Negative (Negative); Urine Bilirubin Dipstick Negative (Negative); Urine Clarity Clear (Clear); Urine Urobilinogen 1 mg/dl (Normal); Urine pH 6.5 (5.0 - 8.0); White Blood Cells 0-5 SEEN /hpf (0-5)
[2017-11-21] MEDS: Ibuprofen 600 MG Tablet PO (07:30)
[2017-11-21] MEDS: FLUoxetine 20 MG Capsule 40 MG PO (09:03)
[2017-11-21] MEDS: OLANZapine 2.5 MG Tablet 5 MG PO (09:03)
== END 2017-11-21 11:13 ==
PROVIDERS: Emergency Medicine; Emergency Provider Emergency Medicine
DX: F32.9 Major depressive disorder, single episode, unspecified (principal); R45.851 Suicidal ideations; F11.20 Opioid dependence, uncomplicated; F12.20 Cannabis dependence, uncomplicated; Z72.0 Tobacco use
CPT/HCPCS: 36415; 80048; 80076; 80307; 80320; 81001; 85025; 93005; 99285; G0480

== ENCOUNTER 2017-12-17 11:47 | Inpatient (IN) | payer MEDICAID, SELFPAY ==
[2017-12-17 12:01] VITALS: BMI 28.7
[2017-12-17 12:12] VITALS: BMI 28.7
[2017-12-17 12:14] VITALS: BP 127/83; PULSE 73; RESP 18; TEMP 36.4; O2SAT 98
[2017-12-17 13:48] VITALS: BP 125/84; PULSE 89; RESP 18; TEMP 37
[2017-12-17] MEDS: Buprenorphine HCl 2 MG TAB.SUBL SL ×2 (13:50→22:14)
[2017-12-17] MEDS: Dicyclomine 10 MG Capsule 20 MG PO ×2 (13:50→22:13)
[2017-12-17] MEDS: Methocarbamol 750 MG Tablet PO ×2 (13:51→22:13)
[2017-12-17] MEDS: cloNIDine HCl 0.1 MG Tablet PO (13:51)
--- NOTE | 2017-12-17 14:23 | PCM.HP.STD ---
Problem List (1) Opioid withdrawal Status: Acute (2) Heroin addiction Status: Chronic History of Present Illness Date of Admission: 12/17/17 Chief Complaint: Opioid withdrawal, heroin addiction The patient is a 27 year old M who was directly admitted into the medical stabilization program at [facility] with complaints of opioid withdrawal. Patient has been a chronic user of IV heroin, his last usage was approximately 36 hours ago. Patient complains of generalized weakness, dizziness, restlessness, nausea, and vomiting. Patient has been through detox one previous time and stayed off heroin for approximately a year only to resume using it in June 2017. Patient uses IV heroin but also uses IV meth. Patient admits to being an alcoholic, he does not currently drink-he has been sober for a number of years. Past Medical History Past Medical History (Chronic Problems): Chronic Problems Heroin addiction (Chronic) Allergies No Known Allergies Allergy (Verified 11/20/17 21:07) Home Medications: Ambulatory Orders Medication Instructions Recorded Fluoxetine [Prozac] 40 mg PO DAILY 11/20/17 Olanzapine [Zyprexa] 5 mg PO BID 11/20/17 traZODone [Desyrel] 100 mg PO DAILY 11/20/17 Surgical History: no surgical history Psychiatric History: No pertinent psych hx Lives: Friends Smoking Status: Current every day smoker Tobacco Use: Cigarettes Alcohol: None Drugs: Marijuana, - - Methamphetamine usage Review of Systems Constitutional: Reports: Malaise, Weakness, Fatigue. Denies: Anorexia, Chills, Fever, Night Sweats, Weight Change Eyes: Denies: Blurred vision, Cataracts, Conjunctivae Inflammation, Double vision, Drainage HEENT: Denies: Difficulty Hearing, Difficulty Swallowing, Dysphasia, Ear Pain, Hearing Changes, Nasal bleeding, Nasal Congestion Cardiovascular: Denies: Chest Pain, Claudication, Chest Pressure, Chest Tightness, Edema, Palpitations Respiratory: Denies: Cough, Hemoptysis, Pleuritic Pain, Shortness of Breath, Shortness of breath at rest, Shortness of breath upon exertion, Sputum production Gastrointestinal: Reports: Abdominal Pain, Nausea, Vomiting. Denies: Constipation, Diarrhea, Hematemesis, Hematochezia, Melena Genitourinary: Reports: Hesitancy. Denies: Dysuria, Frequency, Hematuria, Incontinence, Nocturia, Urgency Musculoskeletal: Denies: Back Pain, Foot Pain, Hand Pain, Joint Pain, Joint stiffness, Joint swelling, Joint Tenderness, Leg Pain Skin: Denies: Dryness, Jaundice, Pruritis, Rash Neurological: Denies: Blurred vision, Double vision, Slurred speech, Difficulty swallowing, Focal weakness, Numbness, Tingling Psychiatric: Denies: Anxiety, Depression, Homicidal Ideations, Suicidal Ideations Endocrine: Denies: Change in Body Habitus, Heat/ Cold Intolerance, Polydipsia, Polyuria Hematologic/ Lymphatic: Denies: Adenopathy, Anemia, Easy Bruising, Easy Bleeding, Petechiae, Purpura VTE Information - Inpt Only VTE Present on Admission: No VTE Mechan Device Prophylaxis: None VTE Pharm Prophylaxis ordered?: No Reason prophylaxis not ordered:: Treatment Not Indicated Patient Problems: Active and Suspected Problems Opioid withdrawal (Acute) - Physical Exam General: Alert, Oriented x3, Cooperative, Well developed, Well nourished HEENT: Atraumatic, PERRLA, EOMI, Normocephalic Oral: Moist Mucosa Neck: Supple, No JVD, Negative Carotid Bruits, No Nuchal Rigidity, Trachea Midline, Thyroid Normal Size and Texture Lungs: Clear to auscultation, Normal air movement, No rhonchi, No wheeze, No rales Cardiovascular: Regular rate, Regular Rhythm, Normal S1, Normal S2, No murmurs, No Ectopic Activity, PMI Normal, No rub noted, No Gallop Abdomen: Bowel Sounds Present, Soft, Non Tender, Non-Distended, No hernias noted Extremities: No edema, Capillary Refill Less than 3 Seconds Skin: No rashes, No breakdown Musculoskeletal: No Tenderness to Palpation of Joints or Extremities Neurological: Cranial nerves II-XII grossly intact, Neuro grossly intact, Sensory exam intact to light touch and pain, Coordination normal Psych/Mental Status: Appropriate, Anxious, Flat Affect Vital Signs Temp Pulse Resp BP Pulse Ox 98.6 F 89 18 125/84 H 98 12/17/17 13:48 12/17/17 13:48 12/17/17 13:48 12/17/17 13:48 12/17/17 12:14 Oxygen Delivery Method Room Air Weight: 80.739 kg Body Mass Index (BMI) 28.7 Assessment/Plan All Active Problems Opioid withdrawal (Acute) #1 acute opiate withdrawal-patient was admitted to [place] [id number], medical stabilization order set was used for his orders, patient tells me that he has plans to go to an inpatient unit at the conclusion of his treatment at [facility] #2 methamphetamine addiction #3 heroin addiction #4 alcoholism-patient states he is not actively drinking Additional note: Patient had been on antidepressants in the past but he states that he was placed on them when he came to the ER complaining of suicidal ideation-he states that he was not serious about this and that he had presented to the ER to help stop his heroin usage. I do not feel the patient needs to be placed back on these previous medications. Code Visit Inpatient E&M: 51845 Init Hosp L3
[2017-12-17 17:23] VITALS: BP 117/76; PULSE 82; RESP 18; TEMP 36.8
[2017-12-17] MEDS: chlordiazePOXIDE 25 MG Capsule PO (17:30)
[2017-12-17] MEDS: Pramipexole Di-HCl 0.25 MG Tablet PO (17:30)
[2017-12-17] MEDS: Ibuprofen 600 MG Tablet PO (17:30)
[2017-12-17 21:59] VITALS: BP 104/61; PULSE 74; RESP 16; TEMP 36.4
[2017-12-17 22:04] VITALS: O2SAT 96
--- NOTE | 2017-12-17 22:05 | NURSING ---
pt removed nicotine patch states it makes him itch. offered to get order for nicotine gum if he needs it pt ok with this. wasted patch in med waste.
[2017-12-17] MEDS: traZODone 100 MG Tablet PO (22:17)
[2017-12-18] VITALS (10 sets, daily range): BP systolic 89–117; BP diastolic 49–67; PULSE 49–81; RESP 12–16; TEMP 36.3–37.1; O2SAT 94–97
[2017-12-18] MEDS: Ibuprofen 600 MG Tablet PO ×3 (02:26→20:53)
[2017-12-18] MEDS: chlordiazePOXIDE 25 MG Capsule PO (02:27)
[2017-12-18] MEDS: Dicyclomine 10 MG Capsule 20 MG PO ×3 (06:06→20:40)
[2017-12-18] MEDS: Pramipexole Di-HCl 0.25 MG Tablet PO ×2 (06:06→20:40)
[2017-12-18] MEDS: Methocarbamol 750 MG Tablet PO ×3 (06:07→20:41)
[2017-12-18] MEDS: Buprenorphine HCl 2 MG TAB.SUBL SL ×3 (06:12→20:54)
[2017-12-18] MEDS: cloNIDine HCl 0.1 MG Tablet PO (13:21)
[2017-12-18] MEDS: Acetaminophen 500 MG Tablet PO ×2 (14:39→18:34)
--- NOTE | 2017-12-18 17:37 | PCM.PROGNOTE ---
Patient Problems: Active and Suspected Problems Opioid withdrawal (Acute) Subjective: Patient was seen and examined today, he complained of various issues today including rib pain and inability to urinate, I was called at first to discuss his rib pain with the patient but when I was in the room he did not bring up any complaints of rib pain but started talking about trouble urinating. I had a bladder scan performed which showed 188 cc of urine in the bladder, I asked nursing to straight cath the patient but the patient refused to allow this to happen. - Physical Exam General: Alert, Oriented x3, Cooperative, No apparent distress, Well developed HEENT: Atraumatic, PERRLA, EOMI, Normocephalic Oral: Moist Mucosa Neck: Supple, Trachea Midline, Thyroid Normal Size and Texture Lungs: Clear to auscultation, Normal air movement, No rhonchi, No wheeze, No rales Cardiovascular: Regular rate, Regular Rhythm, Normal S1, Normal S2, No murmurs, No Ectopic Activity, PMI Normal, No rub noted, No Gallop Abdomen: Bowel Sounds Present, Soft, Non Tender, Non-Distended Extremities: No clubbing, No cyanosis, No edema, Capillary Refill Less than 3 Seconds Skin: No rashes, No breakdown Musculoskeletal: No Tenderness to Palpation of Joints or Extremities Neurological: Cranial nerves II-XII grossly intact, Neuro grossly intact, Sensory exam intact to light touch and pain, Coordination normal Psych/Mental Status: Normal Affect, Appropriate, Alert and oriented to time, place, person, mood and affect Vital Signs Temp Pulse Resp BP Pulse Ox 97.8 F 81 16 99/60 94 12/18/17 13:14 12/18/17 13:14 12/18/17 13:14 12/18/17 13:14 12/18/17 05:57 Oxygen Delivery Method Room Air Weight: 80.739 kg Body Mass Index (BMI) 28.7 Intake and Output for Last 24 Hours 12/16/17 12/17/17 12/18/17 23:59 23:59 23:59 Intake Total 400 / 400 200 / 200 Output Total 100 / 100 150 / 150 Balance 300 / 300 50 / 50 Medical Necessity - Tobacco Use Smoking Status: Current every day smoker Tobacco Use: Cigarettes Assessment/Plan All Active Problems Opioid withdrawal (Acute) #1 acute opiate withdrawal-continue present medications #2 methamphetamine addiction #3 heroin addiction #4 alcoholism-patient states he is not actively drinking #5 complaints of urinary hesitancy-etiology unclear at this point, patient refuses to give a urine specimen for UA and culture Code Visit Inpatient E&M: 47514 Subs Hosp L2
[2017-12-18 18:18] LABS: Red Blood Cells-Urine 0 SEEN /hpf (0-5); Squamous Epithelial Cells - UA 0 SEEN /hpf (0-5)
[2017-12-18 18:30] LABS: Color, Urine Yellow (Yellow); Glucose, Dipstick Normal (Normal); Ketone-Dipstick 5 mg/dl (Negative); Leukocyte Esterase-Dipstick Negative /ul (Negative); Nitrite-Dipstick Negative (Negative); Occult Blood-Urine Negative /ul (Negative); Protein-Dipstick 30 mg/dl (Negative); Specific Gravity, Urine 1.025 (1.002-1.030); Urine Clarity Clear (Clear); Urine Urobilinogen 1 mg/dl (Normal)
[2017-12-18 18:31] LABS: Urine Bilirubin Dipstick 1 mg/dL (Negative)
[2017-12-18] MEDS: Ondansetron ODT 4 MG Tablet PO (18:33)
[2017-12-18 18:37] LABS: Bacteria RARE /hpf (None Seen); Mucous, Urine 1+ /hpf (<or=2+); White Blood Cells 0-5 SEEN /hpf (0-5)
--- NOTE | 2017-12-18 18:50 | RAD_ITS ---
STUDY: X-RAY - UNILATERAL RIBS ( LEFT ) WITH CHEST REASON FOR EXAM: Male, 27 years old. Left rib pain. TECHNIQUE - RIBS: 4 view(s) of the ribs. TECHNIQUE - CHEST: 1 COMPARISON: None. FINDINGS - RIBS: Normal visualized ribs without a demonstrated fracture. FINDINGS - CHEST: Heart size is normal. Hilar and mediastinal shadows are normal. There is no pleural effusion, pulmonary consolidation, or pneumothorax. RAD/Ribs Uni Min 3V w/PA Chest IMPRESSION: RIBS: Normal x-ray examination of the ribs. CHEST: Normal x-ray examination of the chest. Electronically Signed: Arabella Copeland MD at 20:15 EST Tel , Service support ,
[2017-12-19 06:09] VITALS: BP 109/61; PULSE 59; RESP 16; TEMP 36.7
[2017-12-19] MEDS: Dicyclomine 10 MG Capsule 20 MG PO (06:17)
[2017-12-19] MEDS: Methocarbamol 750 MG Tablet PO (06:17)
[2017-12-19] MEDS: Ibuprofen 600 MG Tablet PO ×2 (06:17→19:03)
[2017-12-19] MEDS: Buprenorphine HCl 2 MG TAB.SUBL SL ×2 (06:18→17:23)
[2017-12-19 10:45] VITALS: BP 109/48; PULSE 55; RESP 16; TEMP 36.7
[2017-12-19] MEDS: Ondansetron ODT 4 MG Tablet PO (10:55)
[2017-12-19] MEDS: Acetaminophen 500 MG Tablet PO (10:55)
[2017-12-19] MEDS: chlordiazePOXIDE 25 MG Capsule PO ×2 (10:55→19:08)
[2017-12-19] MEDS: Pramipexole Di-HCl 0.25 MG Tablet PO (10:56)
[2017-12-19 14:35] VITALS: BP 121/81; PULSE 56; RESP 16; TEMP 36.8
[2017-12-19 17:37] VITALS: BP 118/64; PULSE 62; RESP 18; TEMP 37
--- NOTE | 2017-12-19 17:58 | PN_ITS ---
Patient Problems: Active and Suspected Problems Opioid withdrawal (Acute) Subjective: Patient was seen and examined today, yesterday he complained of constipation, I had ordered a laxative but the patient refused to take it, I asked him if he had a bowel movement this morning and he stated no and then I asked him if he had taken the laxative I ordered for him and he told me yes which was a lie. He also complained of left-sided rib pain to his nurse yesterday and requested I come up and talk to him at which time he not have anything to say about his rib pain but was focused on urinary complaints-chiefly hesitancy. I had a bladder scan performed and it showed 188 cc of urine, I requested that the patient be straight cathed for a UA-patient flatly refused. Patient does not appear to exhibit any symptoms of tremor or anxiety at this time, he appeared comfortable this morning and sleepy early in the morning. - Physical Exam General: Alert, Oriented x3, Cooperative, No apparent distress HEENT: Atraumatic, PERRLA, EOMI, Normocephalic Oral: Moist Mucosa Neck: Supple, No Nuchal Rigidity, Trachea Midline, Thyroid Normal Size and Texture Lungs: Clear to auscultation, Normal air movement, No rhonchi, No wheeze, No rales Cardiovascular: Regular rate, Regular Rhythm, Normal S1, Normal S2, No murmurs, No Ectopic Activity, PMI Normal, No rub noted, No Gallop Abdomen: Bowel Sounds Present, Soft, Non Tender, Non-Distended, No hernias noted Extremities: No clubbing, No cyanosis, No edema, Capillary Refill Less than 3 Seconds Skin: No rashes, No breakdown Neurological: Cranial nerves II-XII grossly intact, Neuro grossly intact, Sensory exam intact to light touch and pain, Coordination normal Psych/Mental Status: Appropriate, Flat Affect Vital Signs Temp Pulse Resp BP Pulse Ox 98.6 F 62 18 118/64 97 12/19/17 17:37 12/19/17 17:37 12/19/17 17:37 12/19/17 17:37 12/18/17 20:29 Oxygen Delivery Method Room Air Weight: 80.739 kg Body Mass Index (BMI) 28.7 Intake and Output for Last 24 Hours 12/17/17 12/18/17 12/19/17 23:59 23:59 23:59 Intake Total 400 / 400 200 / 200 400 / 400 Output Total 100 / 100 350 / 350 550 / 550 Balance 300 / 300 -150 / -150 -150 / -150 Laboratory Tests Past 24 Hrs 12/18/17 18:00 Urine Color Yellow Urine Clarity Clear Urine pH 5.0 Ur Specific [place] 1.025 Urine Protein 30 H Urine Glucose (UA) Normal Urine Ketones 5 H Urine Occult Blood Negative Urine Nitrite Negative Urine Bilirubin 1 H Urine Urobilinogen 1 H Ur Leukocyte Esterase Negative Urine RBC 0 SEEN Urine WBC 0-5 SEEN Ur Squamous Epith Cells 0 SEEN Urine Bacteria RARE Urine Mucus 1+ Medical Necessity - Tobacco Use Smoking Status: Current every day smoker Tobacco Use: Cigarettes Assessment/Plan All Active Problems Opioid withdrawal (Acute) #1 acute opiate withdrawal-continue present medications, patient will have to be discharged before 10 AM tomorrow to an outpatient rehab facility. #2 methamphetamine addiction #3 heroin addiction #4 alcoholism-patient states he is not actively drinking #5 complaints of urinary hesitancy-etiology unclear at this point, patient refuses to give a urine specimen for UA and culture Code Visit Inpatient E&M: 77620 Subs Hosp L2
[2017-12-19 22:00] VITALS: BP 126/75; PULSE 68; RESP 16; TEMP 36.8
[2017-12-20] MEDS: Buprenorphine HCl 2 MG TAB.SUBL SL (05:08)
[2017-12-20 08:06] VITALS: BP 121/76; PULSE 63; RESP 16; TEMP 36.8
[2017-12-20] MEDS: chlordiazePOXIDE 25 MG Capsule PO (08:15)
--- NOTE | 2017-12-20 08:56 | DCINST_ITS ---
- Discharge Diagnoses Current Active Problems: Current Active and Chronic Problems Opioid withdrawal (Acute) Heroin addiction (Chronic) You will use the following diet at home:: No restrictions Your food should be the consistency of: Regular Discharge Activity: Return to Normal Activity, No Restrictions Call your doctor if you observe: Fever of 101 or Higher Allergies/Adverse Reactions: Allergies No Known Allergies Allergy (Verified 11/20/17 21:07) Medications to take at Discharge Fluoxetine [Prozac] 40 mg PO DAILY 11/20/17 Olanzapine [Zyprexa] 5 mg PO BID 11/20/17 traZODone [Desyrel] 100 mg PO DAILY 11/20/17 Acetaminophen [Tylenol] 500 mg PO Q4H PRN PRN tablet 12/20/17 Primary Care Physician: Care Physician,No Primary [Primary Care Provider] - Test Results: Test results from this visit will be discussed in further detail at your follow- up appointment, if applicable. Proposed Discharge Date: 12/20/17
--- NOTE | 2017-12-20 08:56 | PCM.DC.SUM ---
Discharge Date and Diagnosis - Problem List Patient Problems: Active and Suspected Problems Opioid withdrawal (Acute) Date of Admission: 12/17/17 Date of Discharge: 12/20/17 - Primary Discharge Diagnosis Active and Suspected Problems Opioid withdrawal (Acute) - Secondary Discharge Diagnosis Chronic Problems Heroin addiction (Chronic) Hospital Course and Treatment Operations: None Procedures: None Summary of Care Provided: The patient is a 27 year old M presents to [facility] for medical stabilization for opiate withdrawal. Patient was taking heroin. Patient was started on Subutex. Patient's course is comp gated by various somatic complaints, including urinary retention. Patient did have a urinalysis that was negative. Patient was offered straight catheterization but declined. Patient had a postvoid residual showed 188 cm? of urine in the bladder. But today, the patient states that he feels well and is ready to undergo the next step of his therapy. [] Patient Problems: Active and Suspected Problems Opioid withdrawal (Acute) - Physical Exam General: Alert, Cooperative, No apparent distress, - - Lying in bed. No acute distress. HEENT: Atraumatic, Normocephalic Psych/Mental Status: Appropriate, Flat Affect Vital Signs Temp Pulse Resp BP Pulse Ox 36.8 C 63 16 121/76 H 97 12/20/17 08:06 12/20/17 08:06 12/20/17 08:06 12/20/17 08:06 12/18/17 20:29 Oxygen Delivery Method Room Air Weight: 80.739 kg Body Mass Index (BMI) 28.7 Intake and Output for Last 24 Hours 12/18/17 12/19/17 12/20/17 23:59 23:59 23:59 Intake Total 200 / 200 400 / 400 1140 / 1140 Output Total 350 / 350 550 / 550 Balance -150 / -150 -150 / -150 1140 / 1140 Discharge Diet: No Restrictions Discharge Activity: Return to Normal Activity, No Restrictions Call your doctor if you observe: Fever of 101 or Higher Home Medications: Medications to take at Discharge Fluoxetine [Prozac] 40 mg PO DAILY 11/20/17 Olanzapine [Zyprexa] 5 mg PO BID 11/20/17 traZODone [Desyrel] 100 mg PO DAILY 11/20/17 Acetaminophen [Tylenol] 500 mg PO Q4H PRN PRN tablet 12/20/17 Primary Care Physician: Care Physician,No Primary [Primary Care Provider] - Disposition: Home Minutes spent on discharge:: 28 Patient Condition:: Good Medical Necessity - Tobacco Use Smoking Status: Current every day smoker Tobacco Use: Cigarettes Meaningful Use Info Meaningful Use Diagnoses (Choose all that apply): None applicable Code Visit Inpatient E&M: 13231 Disch Hosp
== END 2017-12-20 09:00 | disposition home or self-care (01) | DRG 773 ==
PROVIDERS: Admitting Provider Internal Medicine; Referring Provider Internal Medicine
DX: F11.23 Opioid dependence with withdrawal (principal); F17.210 Nicotine dependence, cigarettes, uncomplicated; F19.20 Other psychoactive substance dependence, uncomplicated; F10.20 Alcohol dependence, uncomplicated; R33.9 Retention of urine, unspecified
CPT/HCPCS: 71101; 81001; 87086; 97802; 99406